=== PATIENT | female | born 1970 | race Caucasian/White ===

== ENCOUNTER 2020-01-03 10:33 | Emergency (ER) | payer BC, OTHER ==
[2020-01-03 10:45] VITALS: BP 123/90; TEMP 97.9
[2020-01-03] MEDS ORDERED: GELATIN SPONGE,ABSORB (SMALL) 1 EACH SPONGE TOPICAL STA (10:54)
[2020-01-03] MEDS ORDERED: LIDOCAINE 1% INJ 10MG/ML (20 ML MDV) SQ ONE (10:54)
[2020-01-03] MEDS ORDERED: DIPH,PERTUS(ACELL)TETVAC-LF 0.5 ML VIAL IM ONE (10:58)
--- NOTE | 2020-01-03 11:27 | ED ---
General Adult HPI - General Chief complaint: Wound/Laceration Stated complaint: Finger Laceration Time Seen by Provider: 01/03/20 10:47 Source: patient, RN notes reviewed, old records reviewed Mode of arrival: ambulatory Limitations: no limitations - History of Present Illness Initial comments: 49-year-old female with left third finger laceration. Patient was cutting squash, she had laceration of the distal third finger on the left. She reports persistent bleeding. She states her tetanus is up-to-date she had a tetanus shot one year ago. - Related Data Allergies Allergy/AdvReac Type Severity Reaction Status Date / Time No Known Allergies Allergy Verified 01/03/20 10:45 Review of Systems ROS Statement: Those systems with pertinent positive or pertinent negative responses have been documented in the HPI. ROS Other: All systems not noted in ROS Statement are negative. Past Medical History Past Medical History: Thyroid Disorder History of Any Multi-Drug Resistant Organisms: None Reported Past Surgical History: Orthopedic Surgery Past Psychological History: No Psychological Hx Reported Smoking Status: Never smoker Past Alcohol Use History: None Reported Past Drug Use History: None Reported General Exam Limitations: no limitations General appearance: alert, in no apparent distress Head exam: Present: atraumatic, normocephalic Eye exam: Present: normal appearance, PERRL ENT exam: Present: normal exam Neck exam: Present: normal inspection. Absent: tenderness, meningismus Respiratory exam: Present: normal lung sounds bilaterally. Absent: respiratory distress, wheezes Cardiovascular Exam: Present: regular rate, normal rhythm Extremities exam: Present: other (Left hand, third digit distal phalanx avulsion with the very distal 2 mm of the fingernail. Minimal bleeding.) Course Vital Signs 01/03/20 10:41 Temperature 97.9 F Pulse Rate 106 H Respiratory 19 Rate Blood Pressure 123/90 O2 Sat by Pulse 98 Oximetry Procedures - Nerve Block Consent Obtained: verbal consent Local Anesthetic Used: Lidocaine 1% Side: left Nerve Blocks: digital Procedure Successful: Yes Complications: none Patient Tolerated Procedure: well Additional Comments: Left third digit digital block. Medical Decision Making - Medical Decision Making 29-year-old female with avulsion of the distal tip of the third phalanx. No exposed bone, minimal bleeding. Gelfoam is placed after irrigation with tap water. Hemostasis is achieved. She is instructed on local wound care she has good outpatient follow-up and is currently on antibiotics for respiratory infection. Disposition Clinical Impression: Laceration, Avulsion, finger tip Disposition: HOME SELF-CARE Condition: Good Instructions (If sedation given, give patient instructions): Laceration (ED), Skin Avulsion (ED) Is patient prescribed a controlled substance at d/c from ED?: No Referrals: Stewart Capone MD [Primary Care Provider] - 1-2 days Time of Disposition: 11:27
[2020-01-03 11:31] VITALS: PULSE 90; RESP 18
== END 2020-01-03 11:28 | disposition home or self-care (01) ==
LOC: EC 10:33
DX: S61.213A Laceration without foreign body of left middle finger without damage to nail, initial encounter (principal); W26.9XXA Contact with unspecified sharp object(s), initial encounter; Y93.G9 Activity, other involving cooking and grilling; Z53.20 Procedure and treatment not carried out because of patient's decision for unspecified reasons
CPT/HCPCS: 99283; 64450; J2001

== ENCOUNTER → 2020-01-04 | Outpatient (CLI) | payer BC ==
--- NOTE | 2020-01-04 13:08 | XR ---
EXAMINATION TYPE: XR chest 2V DATE OF EXAM: 01/04/2020 COMPARISON: NONE TECHNIQUE: PA and lateral views submitted. HISTORY: Lung nodule, recurrent cough FINDINGS: The lungs are clear and there is no pneumothorax, pleural effusion, or focal pneumonia. Biapical pl eural thickening. Heart size normal. No overt failure. Mild degenerative changes spine. IMPRESSION: 1. No acute process. No sizable pulmonary nodule seen by standard chest x-ray. If there is history of lung nodule correlate with CT scan.
== END ==
LOC: RADXRMAIN 12:24
PROVIDERS: ATTEND Internal Medicine Hematology & Oncology
DX: R22.9 Localized swelling, mass and lump, unspecified (principal); E03.9 Hypothyroidism, unspecified
CPT/HCPCS: 71046

== ENCOUNTER → 2020-01-14 | Outpatient (CLI) | payer BC ==
--- NOTE | 2020-01-14 14:29 | CT ---
EXAMINATION TYPE: CT neck chest w con DATE OF EXAM: 01/14/2020 1:50 PM COMPARISON: Chest x-ray 01/04/2020 HISTORY: SOB, COUGH, CONGESTION CT DLP: 556 mGycm Automated exposure control for dose reduction was used. CONTRAST: CT scan of the neck and chest is performed following with IV Contrast, patient injected with 100 mL o f Isovue 300. Axial images are obtained, coronal and sagittal reformatted images are reviewed. FINDINGS: Airway: No endobronchial lesion. The lungs show no nodule, there is no pleural or pericardial effusio n. Parotid/submandibular glands: No gross abnormality seen. Carotid/Vascular Structures: Patent, there is no evident aneurysm, no dissection Osseous Structures: Unremarkable. Probable mucus retention cyst present in the left maxillary sinus. Other: There is no mediastinal, axillary, or hilar adenopathy. Upper abdomen is unremarkable. IMPRESSION: Probable mucus retention cyst left maxillary sinus.
== END | disposition home or self-care (01) ==
LOC: RADCTMAIN 12:44
PROVIDERS: ATTEND Internal Medicine Hematology & Oncology
DX: R05 Cough (principal)
CPT/HCPCS: 70491; 71260; Q9967

== ENCOUNTER → 2020-03-28 | Outpatient (CLI) | payer BC | END | disposition home or self-care (01) | LOC: LABWHC1 09:39 | PROVIDERS: ATTEND Family Medicine | DX: R50.9 Fever, unspecified (principal); R06.02 Shortness of breath; R05 Cough; R53.83 Other fatigue | CPT/HCPCS: 87635 ==

== ENCOUNTER → 2020-09-22 | Outpatient (CLI) | payer BC | END | disposition home or self-care (01) | LOC: LABWHC1 07:28 | PROVIDERS: ATTEND Family Medicine | DX: E03.9 Hypothyroidism, unspecified (principal); E34.9 Endocrine disorder, unspecified; Z51.81 Encounter for therapeutic drug level monitoring | CPT/HCPCS: 36415; 82627; 84402; 84403; 84439; 84443; 84481; 84482 ==